=== PATIENT | female | born 1985 | race Caucasian/White ===

== ENCOUNTER 2016-12-15 14:22 | Emergency (ER) | payer OTHER ==
[~2016-12-15] VITALS: Ht 165.1 cm; Wt 65.0 kg
[2016-12-15 14:22] VITALS: Ht 165.1 cm; Wt 65.0 kg
[2016-12-15] MEDS ORDERED: SOD CHLORIDE 0.9% 1,000 ML IV STA ×2 (14:33→15:28)
[2016-12-15 14:37] LABS: ADD SCAN DIFF NO
[2016-12-15 14:39] LABS: BASOPHILS % 0.4 % (0.0-2.0); EOSINOPHILS % 0.2 % (0.0-7.0); HEMOGLOBIN 14.2 g/dl (12.0-16.0); LYMPHOCYTES # 2.3 10^3/ul (0.8-2.9); LYMPHOCYTES % 22.3 % (15.0-51.0); MEAN CORPUSCULAR HEMOGLOBIN 29.1 pg (29.0-33.0); MEAN CORPUSCULAR HGB CONC 33.8 g/dl (32.0-37.0); MEAN CORPUSCULAR VOLUME 86.1 fl (82.0-101.0); MEAN PLATELET VOLUME 9.9 fl (7.4-10.4); MONOCYTE # 0.9 10^3/ul (0.3-0.9); MONOCYTES % 8.7 % (0.0-11.0); NEUTROPHIL # 7.2 10^3/ul (1.6-7.5); PLATELET COUNT 275 10^3/UL (140-415); RED BLOOD COUNT 4.88 10^6/ul (4.20-5.40); WHITE BLOOD COUNT 10.5 10^3/ul (4.8-10.8)
[2016-12-15 14:49] LABS: ALBUMIN 4.2 g/dl (3.3-4.9); CHLORIDE 103 mmol/L (97-110); SODIUM 139 mmol/L (135-144)
[2016-12-15 14:50] LABS: POTASSIUM 4.1 mmol/L (3.5-5.1)
[2016-12-15 14:52] LABS: ALANINE AMINOTRANSFERASE 19 IU/L (13-69); ALKALINE PHOSPHATASE 64 IU/L (42-121); ANION GAP 16 (8-16); ASPARTATE AMINO TRANSFERASE 20 IU/L (15-46); BILIRUBIN,INDIRECT 0.5 mg/dl (0-1.1); BILIRUBIN,TOTAL 0.5 mg/dl (0.2-1.3); BLOOD UREA NITROGEN 10 mg/dl (7-20); CALCIUM 9.5 mg/dl (8.4-10.2); CARBON DIOXIDE 24 mmol/L (21-31); CREATININE 0.83 mg/dl (0.44-1.00); GLUCOSE 99 mg/dl (70-220)
[2016-12-15 14:53] LABS: ADD UMIC YES; URINE BILIRUBIN (Dip) NEGATIVE (NEGATIVE); URINE BLOOD (Dip) NEGATIVE (NEGATIVE); URINE COLOR LT. YELLOW (YELLOW); URINE GLUCOSE (Dip) NEGATIVE (NEGATIVE); URINE KETONES (Dip) NEGATIVE (NEGATIVE); URINE LEUKOCYTE ESTERASE (Dip) NEGATIVE (NEGATIVE); URINE NITRITE (Dip) NEGATIVE (NEGATIVE); URINE TOTAL PROTEIN (Dip) 2+ (NEGATIVE); URINE UROBILINOGEN (Dip) 0.2 E.U./dL (0.1-1.0)
[2016-12-15 14:54] LABS: ACETAMINOPHEN < 10.0 ug/ml (10.0-30.0); ETHANOL < 10.0 mg/dl; SALICYLATE < 1.0 mg/dl (5.0-30.0)
[2016-12-15] MEDS ORDERED: NALOXONE (0.4 MG/ML) INJ IV PRN (15:00)
--- NOTE | 2016-12-15 15:19 | RADRPT ---
PROCEDURE: XR Chest. CLINICAL INDICATION: chest pain, altered mental status TECHNIQUE: Single frontal view of the chest was obtained COMPARISON: None FINDINGS: The heart and mediastinum are within normal limits. The lungs are clear. There is no pleural effusion or pneumothorax. RPTAT: AA IMPRESSION: No acute disease. .Lion Mcadams MD, MD Date Time Electronically viewed and signed by .Lion Mcadasm MD, on 12/15/2016 15:18 .S/
[2016-12-15 15:21] LABS: BARBITURATES Negative (NEGATIVE); BENZODIAZEPINES Negative (NEGATIVE); CANNABINOIDS Negative (NEGATIVE); COCAINE Negative (NEGATIVE); OPIATES Negative (NEGATIVE)
[2016-12-15 15:23] LABS: BACTERIA,URINE FEW; SQUAMOUS EPITHELIAL CELL,UR MODERATE; URINE RBCS 0-2 /HPF (0)
[2016-12-15] MEDS ORDERED: LORAZEPAM 2 MG INJ IV ONE (15:30)
[2016-12-15 16:00] VITALS: TEMP 98.3
--- NOTE | 2016-12-15 16:18 | RADRPT ---
PROCEDURE: CT brain without contrast CLINICAL INDICATION: Altered level of consciousness TECHNIQUE: A CT of the brain was performed utilizing axial sections from the skull base through th e vertex without contrast. Sagittal and coronal images were also reformatted. The exam CTDIvol = 39. 64 mGy and DLP = 634.23 mGy-cm. COMPARISON: None available FINDINGS: Slight limitation from patient motion is noted. No acute intracranial hemorrhage is identified. There is no mass effect or midline shift. No extra -axial fluid collection is seen. The ventricles and sulci are within normal limits for size and con figuration. The density of the brain is within normal limits. Lynn-white differentiation is preser jessica. The osseous structures are unremarkable. The mastoid air cells and visualized paranasal sinuses are clear. RPTAT:HJJR IMPRESSION: Slight limitation from motion artifact, otherwise unremarkable noncontrast CT of the brain. Physician Leilani Date Time Electronically viewed and signed by Physician Leilani on 12/15/2016 16:17 /
--- NOTE | 2016-12-15 17:15 | ERD ---
ER Documentation Chief Complaint Date/Time DATE: 12/15/16 TIME: 17:11 Chief Complaint Patient DANIE found laying on the street altered HPI This is a 34-year-old female who was brought in by ambulance after she was found laying in the street. The patient is refusing to answer any questions at this time, refusing open her eyes, and was brought to the ER for further evaluation. ROS All systems reviewed and are negative except as per history of present illness. Medications Home Meds Unable to Obtain Active Prescriptions or Reported Meds Allergies Allergies: Coded Allergies: Unable to Assess (Verified Allergy, Severe, 12/15/16) PMhx/Soc History of Surgery: No Anesthesia Reaction: No Hx Neurological Disorder: No Hx Respiratory Disorders: No Hx Cardiac Disorders: No Hx Psychiatric Problems: No Hx Miscellaneous Medical Probl: No Hx Alcohol Use: No Hx Substance Use: No Hx Tobacco Use: No Smoking Status: Never smoker Physical Exam Vitals Vital Signs Date Time Temp Pulse Resp B/P Pulse Ox O2 Delivery O2 Flow Rate FiO2 12/15/16 16:00 98.3 120 20 118/90 98 Room Air 12/15/16 15:15 98.0 122 20 126/84 100 Room Air 12/15/16 14:36 Nasal Cannula 2 12/15/16 14:22 98.9 131 20 117/63 100 Physical Exam Const: Disheveled appearance Head: Atraumatic Eyes: Normal Conjunctiva ENT: Dry mucous membranes, normal External Ears, Nose and Mouth. Neck: Full range of motion..~ No meningismus. Resp: Clear to auscultation bilaterally Cardio: Tachycardic Abd: Soft, non tender, non distended. Normal bowel sounds Skin: No petechiae or rashes Back: No midline or flank tenderness Ext: No cyanosis, or edema Neur: Awake and alert Psych: Normal Mood and Affect Result Diagram: 12/15/16 1430 12/15/16 1430 Results 24 hrs Laboratory Tests Test 12/15/16 14:30 12/15/16 14:41 12/15/16 14:50 Acetaminophen Level < 10.0ug/ml Alanine Aminotransferase (ALT/SGPT) 19IU/L Albumin 4.2g/dl Albumin/Globulin Ratio 1.50 Alkaline Phosphatase 64IU/L Anion Gap 16 Aspartate Amino Transf (AST/SGOT) 20IU/L Basophils # 0.010^3/ul Basophils % 0.4% Blood Urea Nitrogen 10mg/dl Calcium Level 9.5mg/dl Carbon Dioxide Level 24mmol/L Chloride Level 103mmol/L Creatinine 0.83mg/dl Direct Bilirubin 0.00mg/dl Eosinophils # 0.010^3/ul Eosinophils % 0.2% Ethyl Alcohol Level < 10.0mg/dl Globulin 2.80g/dl Glucose Level 99mg/dl Hematocrit 42.0% Hemoglobin 14.2g/dl Indirect Bilirubin 0.5mg/dl Lymphocytes # 2.310^3/ul Lymphocytes % 22.3% Mean Corpuscular Hemoglobin 29.1pg Mean Corpuscular Hemoglobin Concent 33.8g/dl Mean Corpuscular Volume 86.1fl Mean Platelet Volume 9.9fl Monocytes # 0.910^3/ul Monocytes % 8.7% Neutrophils # 7.210^3/ul Neutrophils % 68.0% Nucleated Red Blood Cells # 0.010^3/ul Nucleated Red Blood Cells % 0.0/100WBC Platelet Count 33156^3/UL Potassium Level 4.1mmol/L Red Blood Count 4.8810^6/ul Red Cell Distribution Width 13.0% Salicylates Level < 1.0mg/dl Sodium Level 139mmol/L Total Bilirubin 0.5mg/dl Total Protein 7.0g/dl White Blood Count 10.510^3/ul Urine Amorphous Urates FEW Urine Amphetamines Screen POSITIVE Urine Bacteria FEW Urine Barbiturates Negative Urine Benzodiazepines Screen Negative Urine Bilirubin NEGATIVE Urine Cannabinoids Negative Urine Clarity CLEAR Urine Cocaine Screen Negative Urine Color LT. YELLOW Urine Glucose NEGATIVE% Urine Hemoglobin NEGATIVE Urine Ketones NEGATIVE Urine Leukocyte Esterase NEGATIVE Urine Microscopic RBC 0-2/HPF Urine Microscopic WBC 0-2/HPF Urine Nitrite NEGATIVE Urine Opiates Screen Negative Urine Specific [place] 1.020 Urine Squamous Epithelial Cells MODERATE Urine Total Protein 2+ Urine Urobilinogen 0.2 E.U./dL Urine pH 6.0 Bedside Glucose 76mg/dL Current Medications Medications (Trade) Dose Ordered Sig/[place] Route PRN Reason Start Time Stop Time Status Last Admin Dose Admin Naloxone HCl 0.4 mg 0.4 mg Q2M PRN IV LETHARGY 12/15/16 15:00 12/15/16 15:12 Sodium Chloride 1,000 ml @ 1,000 mls/hr Q1H STAT IV 12/15/16 14:33 12/15/16 15:32 DC 12/15/16 14:33 Sodium Chloride (NS) 1,000 ml @ 1,000 mls/hr Q1H STAT IV 12/15/16 15:28 12/15/16 16:27 DC 12/15/16 15:38 Lorazepam (Ativan) 1 mg ONCE ONCE IV 12/15/16 15:30 12/15/16 15:31 DC 12/15/16 15:36 Procedures/MDM CT head without: No stroke or bleeding Chest X-ray 1V Interpreted by me: Soft Tissue: No acute abnormalities Bones: No acute abnormalities Mediastinum/Cardiac Silhouette/Lungs: [No acute abnormalities] EKG: Rate/Rhythm: Sinus tachycardia QRS, ST, T-waves: [No changes consistent w/ acute ischemia] Impression: [No evidence of ischemia or arrhythmia] This 34-year-old female presents to the emergency room for evaluation of altered mental status. This patient was refusing to answer questions on her initial examination, she was tachycardic, refusing to open her eyes. I was able to look at her pupils by opening her eyes and she had normal size pupils which are reactive. This patient did have blood work drawn and a CT of the head all of which were normal. She continued to be tachycardic with no respiratory depressions. I did give the patient 2 mg of Ativan and this patient now is talking, she states she is feeling better and does not know why she is in the emergency room. She does state she is amphetamines visit does not know when. This patient is denying any homicidal suicidal ideation. She is ambulating in the emergency room without difficulty and will be discharged home when she is clinically sober. Departure Diagnosis: Primary Impression: Altered level of consciousness Additional Impression: Methamphetamine abuse Condition: Stable JEANNINE ARELLANO DO Dec 15, 2016 17:15
[2016-12-15 17:35] VITALS: BP 130/86; PULSE 114; RESP 16
== END 2016-12-15 17:52 | disposition home or self-care (01) ==
LOC: E/R 14:22 → EDBD 14:22 → E/R 17:52
DX: R40.4 Transient alteration of awareness (principal); R40.2252 Coma scale, best verbal response, oriented, at arrival to emergency department; F15.10 Other stimulant abuse, uncomplicated; R40.2142 Coma scale, eyes open, spontaneous, at arrival to emergency department; R40.2362 Coma scale, best motor response, obeys commands, at arrival to emergency department
CPT/HCPCS: 36415; 70450; 71010; 80053; 80306; 80307; 81001; 82962; 85025; 93005; 96374; 96375; J2060; J2310; J7030; Z7502; 81003